=== PATIENT | female | born 1945 | race Caucasian/White ===

== ENCOUNTER 2018-09-01 13:56 | Emergency (ER) | payer OTHER ==
[~2018-09-01] VITALS: Ht 162.6 cm; Wt 61.2 kg
[2018-09-01] MEDS ORDERED: FORTAMET500 MG (14:12)
[2018-09-01] MEDS ORDERED: METOPROLOL ER-1 EACH (14:13)
[2018-09-01] MEDS ORDERED: SIMVASTATIN10 MG (14:14)
[2018-09-01] MEDS ORDERED: CIPRO100 MG (14:14)
== END 2018-09-02 00:38 | disposition home or self-care (01) ==
LOC: ER 13:56
DX: L02.31 Cutaneous abscess of buttock (principal); B96.29 Other Escherichia coli [E. coli] as the cause of diseases classified elsewhere

== ENCOUNTER 2018-10-29 10:44 | Day surgery (SDC) | payer OTHER ==
[~2018-10-29 10:44] MED LIST: CIPRO100 MG; FORTAMET500 MG; METOPROLOL ER-1 EACH; SIMVASTATIN10 MG
== END 2018-10-29 16:10 | disposition home or self-care (01) ==
LOC: AMB-ENDOS 10:44
DX: C20 Malignant neoplasm of rectum (principal)

== ENCOUNTER 2019-05-10 07:00 | Inpatient (IN) | payer OTHER ==
[~2019-05-10] VITALS: Ht 162.6 cm; Wt 57.6 kg
[~2019-05-10 07:00] MED LIST changes: -SIMVASTATIN10 MG; +SIMVASTATIN10 MG PO
[2019-05-10] MEDS ORDERED: COZAAR25 MG PO (11:29)
[2019-05-10] MEDS ORDERED: CILOSTAZOL100 MG PO (11:29)
[2019-05-10] MEDS ORDERED: SIMVASTATIN5 MG PO (11:30)
== END 2019-05-13 17:55 | disposition home or self-care (01) | DRG 330 ==
LOC: O/R 07:00 → SURG 11:44
PROVIDERS: ADMIT Colon & Rectal Surgery
PROC: 0D1L0Z4 Bypass Transverse Colon to Cutaneous, Open Approach (ICD-10-PCS; principal; 2019-05-10 07:00)
DX: C20 Malignant neoplasm of rectum (principal); L02.31 Cutaneous abscess of buttock; K63.89 Other specified diseases of intestine